=== PATIENT | female | born 1940 | race Caucasian/White ===

== ENCOUNTER 2017-12-31 21:12 | Inpatient (IN) | payer MEDICARE ==
[~2017-12-31] VITALS: Ht 162.6 cm; Wt 70.8 kg
[2017-12-31] MEDS ORDERED: IV NS 0.9% 1,000 ML BAG IV ONE (21:30)
[2017-12-31 21:47] LABS: APPEARANCE,URINE Slightly Cloudy (CLEAR); BILIRUBIN,URINE Negative (NEGATIVE); BLOOD, URINE Negative Ery/uL (NEGATIVE); COLOR,URINE Light yellow (YELLOW); KETONES,URINE Trace (NEGATIVE); LEUKOCYTE ESTERASE ,URINE Trace (NEGATIVE); NITRITE, URINE Negative (NEGATIVE); PROTEIN,URINE Negative (NEGATIVE); UGLUCOSE Negative (NEGATIVE); UROBILINOGEN,URINE 0.2 EU/dL (0.2)
[2017-12-31 21:54] LABS: BASOPHILS % (AUTO) 0.3 % (0.0-2.0); EOSINOPHILS % (AUTO) 0.8 % (0.0-6.0); HEMATOCRIT 43 % (33-45); HEMOGLOBIN 14.7 g/dL (11.5-14.8); LYMPHOCYTES # (AUTO) 1.1 /CMM (0.8-4.8); LYMPHOCYTES % (AUTO) 11.4 % (20.0-44.0); MEAN CORPUSCULAR HEMOGLOBIN 29 PG (26.0-33.0); MEAN CORPUSCULAR HGB CONC 34 g/dl (31.0-36.0); MEAN CORPUSCULAR VOLUME 84 fL (82-100); MONOCYTES # (AUTO) 0.4 /CMM (0.1-1.30); MONOCYTES % (AUTO) 4.2 % (2.0-12.0); NEUTROPHILS # (AUTO) 8.1 /CMM (1.8-8.9); NEUTROPHILS % (AUTO) 83.3 % (43.0-81.0); PLATELET COUNT (AUTO) 320 /CMM (150-450); RDW COEFFICIENT OF VARIATION 12.5 (11.5-15.0); RED BLOOD CELL COUNT(AUTO) 5.08 MIL/uL (4.0-5.2); WHITE BLOOD COUNT (AUTO) 9.7 K/uL (4.3-11.0)
[2017-12-31 21:59] LABS: BACTERIA,URINE Few /HPF (None Seen); RBC,URINE NONE SEEN /HPF (0-2); SQUAMOUS EPITHELIAL CELL,UR Few /HPF (None Seen)
[2017-12-31 22:10] LABS: INR 0.97 (0.87-1.13)
[2017-12-31 22:13] LABS: CALCIUM, SERUM 9.8 mg/dL (8.5-10.1); CARBON DIOXIDE 26 mmol/L (21-32); CHLORIDE 100 mmol/L (98-107); CREATININE 1.1 mg/dL (0.6-1.3); GLUCOSE 140 mg/dL (74-106); POTASSIUM 4.2 mmol/L (3.5-5.1); SODIUM SERUM 134 mmol/L (136-145); UREA NITROGEN, BLOOD 14 mg/dL (7-18)
[2017-12-31 22:17] LABS: ALANINE AMINOTRANSFERASE 18 U/L (12-78); ALBUMIN 3.8 g/dL (3.4-5.0); ALKALINE PHOSPHATASE 91 U/L (46-116); ASPARTATE AMINOTRANSFERASE 18 U/L (15-37); BILIRUBIN,DIRECT 0.1 mg/dL (0.0-0.2); BILIRUBIN,TOTAL 0.4 mg/dL (0.2-1.0); LIPASE 120 U/L (73-393); TOTAL PROTEIN, SERUM 8.1 g/dL (6.4-8.2)
[2017-12-31] MEDS ORDERED: IOHEXOL-300 100 ML VIAL IV ONE (22:21)
[2017-12-31] MEDS ORDERED: MORPHINE SULFATE INJ 4 MG/ML DISP.SYRIN ONE (23:26)
[2017-12-31] MEDS ORDERED: ONDANSETRON HCL/PF 4 MG/2 ML VIAL ONE (23:26)
[2017-12-31] MEDS ORDERED: MORPHINE SULFATE INJ 2 MG/ML DISP.SYRIN IV ONE (23:30)
[2017-12-31] MEDS ORDERED: ONDANSETRON HCL/PF 4 MG/2 ML VIAL IV ONE (23:30)
[2018-01-01] MEDS ORDERED: LIDOCAINE VISCOUS 2% UD 15 ML UDC MM ONE
[2018-01-01] MEDS ORDERED: MAG HYDROX/AL HYDROX/SIMETH 30 ML UDC PO ONE
[2018-01-01] MEDS ORDERED: LIDOCAINE VISCOUS 2% UD 15 ML UDC ONE (00:24)
[2018-01-01] MEDS ORDERED: MAG HYDROX/AL HYDROX/SIMETH 30 ML UDC ONE (00:24)
[2018-01-01] MEDS ORDERED: MORPHINE SULFATE INJ 4 MG/ML DISP.SYRIN ONE (00:51)
[2018-01-01] MEDS ORDERED: PANTOPRAZOLE 40 MG VIAL IV ONE (01:00)
[2018-01-01] MEDS ORDERED: MORPHINE SULFATE INJ 2 MG/ML DISP.SYRIN IV ONE (01:00)
[2018-01-01] MEDS ORDERED: PANTOPRAZOLE 40 MG VIAL ONE (01:24)
[2018-01-01 01:55] VITALS: BP 158/83
[2018-01-01] MEDS ORDERED: ASPI-605 PO (02:49)
[2018-01-01] MEDS ORDERED: VITA400C24 PO (02:49)
[2018-01-01] MEDS ORDERED: CLOB15OI3 TP (02:49)
[2018-01-01] MEDS ORDERED: AMLO1CAP8 PO (02:49)
[2018-01-01] MEDS ORDERED: [UNRECOGNIZED DRUG - CODE] PO (02:49)
[2018-01-01] MEDS ORDERED: DENO60DI SQ (02:49)
[2018-01-01] MEDS ORDERED: CALC-897 PO (02:49)
[2018-01-01] MEDS ORDERED: NAFT45CR2 TP (02:49)
[2018-01-01] MEDS ORDERED: FLUT16SP BNOSTRILS (02:49)
[2018-01-01] MEDS ORDERED: LISI-653 PO (02:49)
[2018-01-01] MEDS ORDERED: LORA10TA7 PO (02:49)
[2018-01-01] MEDS ORDERED: LEVO100T9 PO (02:49)
[2018-01-01] MEDS ORDERED: Z GUARD REMEDY 2 OZ OINT TP PRN (03:30)
[2018-01-01] MEDS ORDERED: MAGNESIUM HYDROXIDE 30 ML UDC PO PRN (03:30)
[2018-01-01] MEDS ORDERED: MAG HYDROX/AL HYDROX/SIMETH 30 ML UDC PO PRN (03:30)
[2018-01-01] MEDS ORDERED: HYDROCODONE/APAP 5/325MG 1 EACH TABLET PO PRN (03:30)
[2018-01-01] MEDS ORDERED: ACETAMINOPHEN 325 MG TABLET PO PRN (03:30)
[2018-01-01] MEDS ORDERED: ONDANSETRON HCL/PF 4 MG/2 ML VIAL IVP PRN (03:30)
[2018-01-01] MEDS ORDERED: ZOLPIDEM TARTRATE 5 MG TABLET PO PRN (03:30)
[2018-01-01] MEDS ORDERED: LEVOFLOXACIN 500 MG /D5W 100ML 500 MG in PREMIX 1 EA IV SCH (04:00)
[2018-01-01] MEDS ORDERED: METRONIDAZOLE 500MG/ NS 100ML 100 ML IV ONE (04:08)
[2018-01-01] MEDS ORDERED: LEVOFLOXACIN 500 MG /D5W 100ML 100 ML IV ONE (04:09)
[2018-01-01] MEDS: IV 1/2NS 1000 ML 1,000 ML IV PRN (04:24)
[2018-01-01] MEDS: METRONIDAZOLE 500MG/ NS 100ML 500 MG in PREMIX 1 EA IV SCH ×3 (06:11→21:33)
[2018-01-01 08:00] VITALS: BP 127/71
[2018-01-01] MEDS: PANTOPRAZOLE 40 MG VIAL IV SCH (08:47)
[2018-01-01 16:00] VITALS: BP 136/69
[2018-01-01] MEDS: CLOBETASOL 0.05% CREAM 15 GM TUBE TP SCH (16:45)
[2018-01-01] MEDS: SUCRALFATE 1 G TABLET PO SCH ×2 (16:52→21:34)
[2018-01-01] MEDS ORDERED: CLOBETASOL 0.05% OINT 30 GM TUBE TP SCH (17:00)
[2018-01-01] MEDS ORDERED: CALCIUM CARBONATE 500 MG TAB.CHEW PO PRN (17:30)
[2018-01-01 20:00] VITALS: BP 139/73
[2018-01-02] MEDS: IV 1/2NS 1000 ML 1,000 ML IV PRN (04:25)
[2018-01-02] MEDS: METRONIDAZOLE 500MG/ NS 100ML 500 MG in PREMIX 1 EA IV SCH ×3 (04:25→20:51)
[2018-01-02] MEDS: LEVOFLOXACIN 250 MG /D5W 50 ML 250 MG in PREMIX 1 EA IV SCH (06:52)
[2018-01-02] MEDS: SUCRALFATE 1 G TABLET PO SCH ×4 (06:54→21:06)
[2018-01-02] MEDS: LEVOTHYROXINE SODIUM 100 MCG TABLET PO SCH (06:54)
[2018-01-02 07:19] LABS: BASOPHILS % (AUTO) 0.2 % (0.0-2.0); EOSINOPHILS % (AUTO) 1.7 % (0.0-6.0); HEMATOCRIT 38 % (33-45); HEMOGLOBIN 12.8 g/dL (11.5-14.8); LYMPHOCYTES % (AUTO) 10.9 % (20.0-44.0); MEAN CORPUSCULAR HEMOGLOBIN 29 PG (26.0-33.0); MEAN CORPUSCULAR HGB CONC 34 g/dl (31.0-36.0); MEAN CORPUSCULAR VOLUME 88 fL (82-100); MONOCYTES # (AUTO) 0.6 /CMM (0.1-1.30); MONOCYTES % (AUTO) 6.7 % (2.0-12.0); NEUTROPHILS % (AUTO) 80.5 % (43.0-81.0); PLATELET COUNT (AUTO) 276 /CMM (150-450); RDW COEFFICIENT OF VARIATION 13.4 (11.5-15.0); RED BLOOD CELL COUNT(AUTO) 4.34 MIL/uL (4.0-5.2); WHITE BLOOD COUNT (AUTO) 8.7 K/uL (4.3-11.0)
[2018-01-02 07:22] LABS: ALANINE AMINOTRANSFERASE 93 U/L (12-78); ALBUMIN 2.9 g/dL (3.4-5.0); ALKALINE PHOSPHATASE 115 U/L (46-116); ASPARTATE AMINOTRANSFERASE 71 U/L (15-37); BILIRUBIN,TOTAL 0.3 mg/dL (0.2-1.0); CALCIUM, SERUM 7.8 mg/dL (8.5-10.1); CARBON DIOXIDE 25 mmol/L (21-32); CHLORIDE 107 mmol/L (98-107); CREATININE 1.1 mg/dL (0.6-1.3); GLUCOSE 110 mg/dL (74-106); MAGNESIUM 1.7 mg/dL (1.8-2.4); PHOSPHORUS 1.9 mg/dL (2.5-4.9); POTASSIUM 3.4 mmol/L (3.5-5.1); SODIUM SERUM 139 mmol/L (136-145); TOTAL PROTEIN, SERUM 6.4 g/dL (6.4-8.2); UREA NITROGEN, BLOOD 10 mg/dL (7-18)
[2018-01-02 07:24] LABS: CHOLESTEROL 189 mg/dL (<200); HDL CHOLESTEROL 59 mg/dL (40-60); LDL 113 mg/dL (0-99); TRIGLYCERIDES 111 mg/dL (30-150)
[2018-01-02] MEDS ORDERED: MAGNESIUM OXIDE 400 MG TABLET PO ONE (08:00)
[2018-01-02] MEDS ORDERED: POTASSIUM CHLORIDE 20 MEQ TAB.PRT.SR PO ONE (08:00)
[2018-01-02] MEDS: ASPIRIN EC 81 MG TABLET.DR PO SCH (08:30)
[2018-01-02] MEDS: LORATADINE 10 MG TABLET PO SCH (08:30)
[2018-01-02] MEDS: BENAZEPRIL HCL 10 MG TABLET PO SCH (08:31)
[2018-01-02] MEDS: AMLODIPINE BESYLATE 5 MG TABLET PO SCH (08:31)
[2018-01-02] MEDS: LISINOPRIL (10MG) 10 MG TABLET PO SCH (08:31)
[2018-01-02 08:32] VITALS: BP 140/70
[2018-01-02] MEDS: CLOBETASOL 0.05% CREAM 15 GM TUBE TP SCH ×2 (08:32→16:31)
[2018-01-02] MEDS: VITAMIN E 400 UNIT CAPSULE PO SCH (08:32)
[2018-01-02] MEDS: HYDROCHLOROTHIAZIDE 25 MG TABLET PO SCH (08:32)
[2018-01-02] MEDS: FLUTICASONE PROPIONATE 16 GM BOTTLE NS SCH (08:33)
[2018-01-02] MEDS ORDERED: NAFTIFINE HCL TP SCH (09:00)
[2018-01-02] MEDS ORDERED: [UNRECOGNIZED DRUG - OTHER] PO SCH (09:00)
[2018-01-02] MEDS ORDERED: HYDROCHLOROTHIAZIDE PO SCH (09:00)
[2018-01-02] MEDS ORDERED: CHONDROIT PO SCH (09:00)
[2018-01-02] MEDS ORDERED: [UNRECOGNIZED DRUG - OTHER] PO SCH (09:00)
[2018-01-02] MEDS ORDERED: Medication Not On Formulary EA (Denosumab (Prolia) 60 MG) SQ SCH (09:00)
[2018-01-02] MEDS ORDERED: LISINOPRIL PO SCH (09:00)
[2018-01-02] MEDS ORDERED: VIT D3 PO SCH (09:00)
[2018-01-02] MEDS ORDERED: MSM PO SCH (09:00)
[2018-01-02] MEDS ORDERED: GLUCOSAM PO SCH (09:00)
[2018-01-02] MEDS: PANTOPRAZOLE 40 MG VIAL IV SCH (09:15)
[2018-01-02] MEDS ORDERED: K PHOS NEUTRAL 250 MG TABLET PO ONE (15:30)
[2018-01-02 15:59] VITALS: BP 125/63
[2018-01-02 20:00] VITALS: BP 125/72
[2018-01-02 20:29] VITALS: BP 125/72
[2018-01-02] MEDS: MUPIROCIN OINT 2% 22 GM TUBE SCH (20:51)
[2018-01-03] MEDS: IV 1/2NS 1000 ML 1,000 ML IV PRN (01:57)
[2018-01-03] MEDS: METRONIDAZOLE 500MG/ NS 100ML 500 MG in PREMIX 1 EA IV SCH ×2 (04:27→12:19)
[2018-01-03] MEDS: LEVOFLOXACIN 250 MG /D5W 50 ML 250 MG in PREMIX 1 EA IV SCH (05:55)
[2018-01-03 06:26] LABS: BASOPHILS % (AUTO) 0.5 % (0.0-2.0); EOSINOPHILS % (AUTO) 5.1 % (0.0-6.0); HEMATOCRIT 37 % (33-45); HEMOGLOBIN 12.5 g/dL (11.5-14.8); LYMPHOCYTES # (AUTO) 1.5 /CMM (0.8-4.8); LYMPHOCYTES % (AUTO) 20.5 % (20.0-44.0); MEAN CORPUSCULAR HEMOGLOBIN 29 PG (26.0-33.0); MEAN CORPUSCULAR HGB CONC 33 g/dl (31.0-36.0); MEAN CORPUSCULAR VOLUME 87 fL (82-100); MONOCYTES # (AUTO) 0.8 /CMM (0.1-1.30); MONOCYTES % (AUTO) 10.2 % (2.0-12.0); NEUTROPHILS # (AUTO) 4.8 /CMM (1.8-8.9); NEUTROPHILS % (AUTO) 63.7 % (43.0-81.0); PLATELET COUNT (AUTO) 259 /CMM (150-450); RDW COEFFICIENT OF VARIATION 13.6 (11.5-15.0); RED BLOOD CELL COUNT(AUTO) 4.28 MIL/uL (4.0-5.2); WHITE BLOOD COUNT (AUTO) 7.5 K/uL (4.3-11.0)
[2018-01-03 06:30] LABS: ALANINE AMINOTRANSFERASE 59 U/L (12-78); ALBUMIN 2.7 g/dL (3.4-5.0); ALKALINE PHOSPHATASE 93 U/L (46-116); ASPARTATE AMINOTRANSFERASE 34 U/L (15-37); BILIRUBIN,TOTAL 0.4 mg/dL (0.2-1.0); CALCIUM, SERUM 7.3 mg/dL (8.5-10.1); CARBON DIOXIDE 26 mmol/L (21-32); CHLORIDE 108 mmol/L (98-107); CREATININE 1.1 mg/dL (0.6-1.3); GLUCOSE 109 mg/dL (74-106); MAGNESIUM 1.8 mg/dL (1.8-2.4); PHOSPHORUS 1.9 mg/dL (2.5-4.9); POTASSIUM 3.3 mmol/L (3.5-5.1); SODIUM SERUM 139 mmol/L (136-145); TOTAL PROTEIN, SERUM 6.2 g/dL (6.4-8.2); UREA NITROGEN, BLOOD 5 mg/dL (7-18)
[2018-01-03] MEDS: SUCRALFATE 1 G TABLET PO SCH ×2 (07:30→12:19)
[2018-01-03] MEDS: LEVOTHYROXINE SODIUM 100 MCG TABLET PO SCH (07:30)
[2018-01-03] MEDS: FLUTICASONE PROPIONATE 16 GM BOTTLE NS SCH (08:04)
[2018-01-03] MEDS: MUPIROCIN OINT 2% 22 GM TUBE SCH (08:05)
[2018-01-03] MEDS: PANTOPRAZOLE 40 MG VIAL IV SCH (08:07)
[2018-01-03] MEDS: ASPIRIN EC 81 MG TABLET.DR PO SCH (08:09)
[2018-01-03] MEDS: LISINOPRIL (10MG) 10 MG TABLET PO SCH (09:00)
[2018-01-03] MEDS: HYDROCHLOROTHIAZIDE 25 MG TABLET PO SCH (09:00)
[2018-01-03] MEDS: AMLODIPINE BESYLATE 5 MG TABLET PO SCH (09:00)
[2018-01-03] MEDS: VITAMIN E 400 UNIT CAPSULE PO SCH (09:00)
[2018-01-03] MEDS: LORATADINE 10 MG TABLET PO SCH (09:00)
[2018-01-03] MEDS: BENAZEPRIL HCL 10 MG TABLET PO SCH (09:00)
[2018-01-03] MEDS ORDERED: ANESTHESIA TRAY IN PYXIS 1 EA TRAY MC ONE (09:55)
[2018-01-03] MEDS: CLOBETASOL 0.05% CREAM 15 GM TUBE TP SCH (10:41)
[2018-01-03 12:11] VITALS: BP 143/74
[2018-01-03] MEDS ORDERED: POTASSIUM CHLORIDE 20 MEQ TAB.PRT.SR PO SCH (13:00)
[2018-01-03] MEDS ORDERED: K PHOS NEUTRAL 250 MG TABLET PO ONE (13:00)
[2018-01-03] MEDS ORDERED: PANT40TA2 PO (13:53)
[2018-01-03] MEDS ORDERED: PANTOPRAZOLE 40 MG VIAL IV SCH (17:00)
== END 2018-01-03 16:15 | disposition home or self-care (01) | DRG 392 ==
LOC: ER 21:17 → MED 01-01 01:12
PROVIDERS: ADMIT Internal Medicine; ATTEND Registered Nurse
DX: K29.00 Acute gastritis without bleeding (principal); E87.1 Hypo-osmolality and hyponatremia; E83.42 Hypomagnesemia; E83.39 Other disorders of phosphorus metabolism; E87.6 Hypokalemia; I10 Essential (primary) hypertension; Z88.5 Allergy status to narcotic agent; K21.9 Gastro-esophageal reflux disease without esophagitis; K44.9 Diaphragmatic hernia without obstruction or gangrene; Z90.49 Acquired absence of other specified parts of digestive tract; Z87.891 Personal history of nicotine dependence; E03.9 Hypothyroidism, unspecified; E78.5 Hyperlipidemia, unspecified; K22.9 Disease of esophagus, unspecified
CPT/HCPCS: 36415; 80048-TC; 80053-TC; 80061-TC; 80076-TC; 81000-TC; 83690-TC; 83735-TC; 84100-TC; 84484-TC; 85025-TC; 85730-TC; 87081-TC; 87086-TC; 88305-TC; 88313-TC; 88342; A4216; A4606; C9113; J1956; J2270; J2405; J3490; J7030; J7050; Q9967; Z7610